=== PATIENT | female | born 1985 | race Caucasian/White ===

== ENCOUNTER 2018-11-21 09:18 | Inpatient (IN) | payer MEDICAID, OTHER ==
[2018-11-21] MEDS: Lactated Ringer's 1,000 ML IV ONE ×2 (09:20→10:10)
[2018-11-21 09:43] VITALS: BMI 28.7
[2018-11-21] MEDS ORDERED: Penicillin G Potassium 5 MU in Sodium Chloride 0.9% 50 ML IVPB ONE (09:43)
[2018-11-21] MEDS ORDERED: Lactated Ringer's 1,000 ML IV SCH (09:45)
--- NOTE | 2018-11-21 10:18 | OBADHP ---
Datetime: 11/21/2018 09:45 Admit Comment, IP Provider: 33yo IUP at 39w0d c/o CTX pain at 8am and SROM shortly after. No VB. +FM PNC: Shirley Paulson [facility] - [facility] documented 5 visits 16 - 30w - nothign afterwards. Pt states that she is GBS+ needs antibiotics/Shir[facility] Paulson is supposed [facility] deliver [facility] [place] [facility] but Shirley Paulson does not deliver. Genecit counselling for Hb C PMH: denies PSH: denies NKA POBGHYNH: denies STD/ x 1 6+lb and spont ab x 1 PSoH: Denies smoking ETOH drugs A: IUP at 39w SROM/early labor GBS+ acc to pt HbC PLAN: admit to L_D Labor, pain managment, IV Abx, delivery and disucssed. Her questions answered. She u nderstands that her OB provider is not delivering. Monitor labor progress Extremities - PN: Normal Abdomen - PN: Normal Back - PN: Normal Lungs - PN: Normal Heart - PN: Normal Thyroid - PN: Normal Neurologic - PN: Normal HEENT - PN: Normal General - PN: Normal Presentation-Admit: Vertex IP Fetus A Comments: Sono ceph FHR - Baseline A Provider: 150 Membranes, Provider: Ruptured Pool Provider: Positive IP Hx Assessment: The History has been Updated Vital Signs Provider: Reviewed IP Chief Complaint: Uterine contractions; Suspected ruptured membranes NICHD Variability Prov Fetus A: Moderate 6-25bpm NICHD Accel Fetus A IP Provider: 15X15 FHR Category Provider Fetus A: Category I NICHD Decel Fetus A IP Provider: None Dilatation, Provider: 4 Effacement, Provider: 90 Station, Provider: -1 Genitourinary Exam: Normal DTRs - PN: Normal IP Adm Impression: Term, intrauterine ; No Active Labor; Ruptured Membranes IP Admit Plan: Admit to unit; Initiate labor protocol
[2018-11-21] MEDS ORDERED: Penicillin G 5 Million Unit Vial IVPB ONE (10:45)
[2018-11-21 10:55] LABS: BASO % 0.3 % (0.0-2.0); EOS # 0.1 K/uL (0.0-0.7); EOS % 0.9 % (0.0-4.0); LYMPH # 1.6 K/uL (1.0-4.3); LYMPH % 15.2 % (20.0-40.0); MEAN CORPUSCULAR HEMOGLOBIN 25.9 pg (27.0-31.0); MEAN CORPUSCULAR HGB CONC 33.7 g/dL (33.0-37.0); MEAN PLATELET VOLUME 9.8 fl (7.2-11.7); MONO # 0.7 K/uL (0.0-0.8); MONO % 6.4 % (0.0-10.0); NEUT # 7.9 K/uL (1.8-7.0); NEUT % 77.2 % (50.0-75.0); NRBC % 0.1 % (0.0-0.0); RBC 4.62 Mil/uL (3.80-5.20); RED CELL DISTRIBUTION WIDTH 19.4 % (11.5-14.5); WHITE BLOOD COUNT 10.3 K/uL (4.8-10.8)
[2018-11-21] MEDS ORDERED: Bupivacaine HCl 0.5% PF (30 ml) Inj ONE (11:06)
[2018-11-21] MEDS ORDERED: Fentanyl/Bupivacaine HCl 250 ML EPI ONE (11:06)
[2018-11-21] MEDS ORDERED: Oxytocin 30 UNIT in NS 500 ml 30 UNITS/500 ML BAG IV ONE ×2 (13:53→13:59)
[2018-11-21] MEDS ORDERED: OXYTOCIN/0.9 % NS 20 UNIT/1,000 ML BAG IV SCH ×2 (14:00→19:21)
[2018-11-21] MEDS ORDERED: Sodium Chloride 0.9% 1,000 ML IV SCH (15:30)
[2018-11-21] MEDS ORDERED: Lidocaine 1% Inj (20ml) ONE (16:27)
[2018-11-21] MEDS ORDERED: Oxycodone/Acetaminophen 5/325 mg Tab PO PRN ×3 (17:09→19:21)
[2018-11-21] MEDS ORDERED: Benzocaine/Menthol SPRAY TOP PRN (17:09)
[2018-11-21] MEDS: Oxycodone/Acetaminophen 5/325 mg Tab PO PRN (21:14)
[2018-11-21] MEDS: Benzocaine/Menthol SPRAY TOP PRN (21:14)
[2018-11-22 06:36] LABS: BASO % 0.3 % (0.0-2.0); EOS # 0.1 K/uL (0.0-0.7); EOS % 0.6 % (0.0-4.0); HEMOGLOBIN 12.1 g/dL (12.0-16.0); LYMPH % 12.7 % (20.0-40.0); MEAN CELL VOLUME 77.3 fl (81.0-99.0); MEAN CORPUSCULAR HGB CONC 33.7 g/dL (33.0-37.0); MEAN PLATELET VOLUME 10.1 fl (7.2-11.7); MONO # 0.8 K/uL (0.0-0.8); MONO % 4.9 % (0.0-10.0); NEUT # 13.1 K/uL (1.8-7.0); NEUT % 81.5 % (50.0-75.0); NRBC % 0.1 % (0.0-0.0); RBC 4.66 Mil/uL (3.80-5.20); RED CELL DISTRIBUTION WIDTH 19.4 % (11.5-14.5)
[2018-11-22 06:55] LABS: WHITE BLOOD COUNT 16.1 K/uL (4.8-10.8)
--- NOTE | 2018-11-22 08:36 | OBDS ---
DELIVERY PERSONNEL Delivery Doctor: Dexter Romero DO Film Library Clerk: Karolina Dobbins RN Anesthesiologist: Dr. Baldwin Sales Process Manager: Dr. Baldwin Resident: Dr. Aponte MATERNAL INFORMATION Delivery Anesthesia: Local; Epidural Medications in Delivery: Pitocin 30 units Estimated Blood Loss (ml): 100 Placenta Cultured: No Maternal Complications: None Provider Comments: Over intact perineum, of live male infant. Two loose nuchal cords noted and reduced. Infant was cryig spontaneously and placed on mother's chest for [id number]. AGPAR 9,9. Peds in attendance. She remained stable EBL 100cc (Annotations: Data stored by N on behalf of user) LABOR SUMMARY EDC: 11/28/2018 00:00 No. Babies in Womb: 1 Attempted: No Labor Anesthesia: None LABOR INFORMATION Reason for Induction: Not Applicable Onset of Labor: 11/21/2018 08:00 Complete Dilatation: 11/21/2018 16:25 Oxytocin: N/A Group B Beta Strep: Positive Antibiotics # of Doses: 2 Antibiotics Time of Last Dose: 1445 Steroids Given: None Reason Steroids Not Administered: Not Applicable MEMBRANES Membranes Rupture Method: Spontaneous Rupture of Membranes: 11/21/2018 08:30 Length of Rupture (hrs): 8.50 Amniotic Fluid Color: Light Meconium Amniotic Fluid Amount: Small Amniotic Fluid Odor: Normal STAGES OF LABOR Stage 1 hrs: 8 Stage 1 min: 25 Stage 2 hrs: 0 Stage 2 min: 35 Stage 3 hrs: 0 Stage 3 min: 5 Total Time in Labor hrs: 9 Total Time in Labor min: 5 VAGINAL DELIVERY Episiotomy: None Laceration Extension: First Degree Laceration Type: Perineal Laceration Repair Note: first dergee perinela lacertatoin repeaired with 2.0 vicryl Rapide suture (f igure of eight x once); Lidcaine infiltrated 2-3cc Initial Vag Sponge Count: 5 Final Vag Sponge Count: 5 Initial Vag Sharps Count: 1 Final Vag Sharps Count: 1 Sponge Count Correct: Yes Sharps Count Correct: Yes Count Comment: 5 lap pads one syringe one suture needle BABY A INFORMATION Infant Delivery Date/Time: 11/21/2018 17:00 Method of Delivery: Vaginal Born in Route : No : N/A Forceps: N/A Vacuum Extraction: N/A Shoulder Dystocia : No SHOULDER DYSTOCIA BABY A Infant Delivery Date/Time: 11/21/2018 17:00 PRESENTATION/POSITION BABY A Presentation: Cephalic Cephalic Presentation: Vertex Breech Presentation: N/A PLACENTA INFORMATION BABY A Placenta Delivery Time : 11/21/2018 17:05 Placenta Method of Delivery: Spontaneous Placenta Status: Delivered SCORES BABY A Heart Rate 1 min: >100 bpm Resp Effort 1 min: Good Cry Reflex Irritability 1 min: Cough or Sneeze or Pulls Away Muscle Tone 1 min: Active Motion Color 1 min: Body [place], Extremities Blue Resuscitation Effort 1 min: Tactile Stimulation SCORE 1 MIN: 9 Heart Rate 5 min: >100 bpm Resp Effort 5 min: Good Cry Reflex Irritability 5 min: Cough or Sneeze or Pulls Away Muscle Tone 5 min: Active Motion Color 5 min: Body [place], Extremities Blue Resuscitation Effort 5 min: Tactile Stimulation SCORE 5 MIN: 9 INFORMATION BABY A Gestational Age at Delivery: 39.0 Gestational Status: Term Infant Outcome : Liveborn Condition : Stable Sex: Male IDENTIFICATION/MEDS BABY A ID Band Number: [id number] ID Band Location: Left Leg; Left Arm WEIGHT/LENGTH BABY A Infant Birthweight (gms): 3595 Infant Weight (lb): 7 Weight (oz): 15 CORD INFORMATION BABY A No. Cord Vessels: 3 Nuchal Cord : Around Neck x2, Loose Cord Blood Taken: N/A Suction: None ASSESSMENT BABY A Complications: Multiple Variable Decels; Meconium Physical Findings at Delivery: Within Normal Limits Respirations: Appears Normal Levi Maker/ALS Called : No Infant Care By: Maura Carrero Transferred To: Remains with Mother
--- NOTE | 2018-11-22 08:38 | OBDS ---
DELIVERY PERSONNEL Delivery Doctor: Dexter Romero DO Tiltrotor Crew Chief: Karolina Dobbins RN Anesthesiologist: Dr. Baldwin Tobacco Educator: Dr. Baldwin Resident: Dr. Aponte MATERNAL INFORMATION Delivery Anesthesia: Local; Epidural Medications in Delivery: Pitocin 30 units Estimated Blood Loss (ml): 100 Placenta Cultured: No Maternal Complications: None Provider Comments: Over intact perineum, of live male infant. Two loose nuchal cords noted and reduced. Infant was cryig spontaneously and placed on mother's chest for [id number]. AGPAR 9,9. Peds in attendance. She remained stable EBL 100cc (Annotations: Data stored by N on behalf of user) LABOR SUMMARY EDC: 11/28/2018 00:00 EDC: 11/28/2018 00:00 No. Babies in Womb: 1 Attempted: No Labor Anesthesia: None LABOR INFORMATION Reason for Induction: Not Applicable Onset of Labor: 11/21/2018 08:00 Complete Dilatation: 11/21/2018 16:25 Oxytocin: N/A Group B Beta Strep: Positive Group B Beta Strep: unknown Antibiotics # of Doses: 2 Antibiotics Time of Last Dose: 1445 Steroids Given: None Reason Steroids Not Administered: Not Applicable MEMBRANES Membranes Rupture Method: Spontaneous Membranes Rupture Method: Spontaneous Rupture of Membranes: 11/21/2018 08:30 Rupture of Membranes: 11/21/2018 08:30 Length of Rupture (hrs): 8.50 Length of Rupture (hrs): 8.50 Amniotic Fluid Color: Light Meconium Amniotic Fluid Color: Light Meconium Amniotic Fluid Amount: Small Amniotic Fluid Amount: Small Amniotic Fluid Odor: Normal Amniotic Fluid Odor: Normal STAGES OF LABOR Stage 1 hrs: 8 Stage 1 min: 25 Stage 2 hrs: 0 Stage 2 min: 35 Stage 3 hrs: 0 Stage 3 min: 5 Total Time in Labor hrs: 9 Total Time in Labor min: 5 VAGINAL DELIVERY Episiotomy: None Laceration Extension: First Degree Laceration Type: Perineal Laceration Repair Note: first dergee perinela lacertatoin repeaired with 2.0 vicryl Rapide suture (f igure of eight x once); Lidcaine infiltrated 2-3cc Initial Vag Sponge Count: 5 Final Vag Sponge Count: 5 Initial Vag Sharps Count: 1 Final Vag Sharps Count: 1 Sponge Count Correct: Yes Sharps Count Correct: Yes Count Comment: 5 lap pads one syringe one suture needle BABY A INFORMATION Infant Delivery Date/Time: 11/21/2018 17:00 Method of Delivery: Vaginal Born in Route : No : N/A Forceps: N/A Vacuum Extraction: N/A Shoulder Dystocia : No SHOULDER DYSTOCIA BABY A Delivery Date/Time: 11/21/2018 17:00 PRESENTATION/POSITION BABY A Presentation: Cephalic Cephalic Presentation: Vertex Breech Presentation: N/A PLACENTA INFORMATION BABY A Placenta Delivery Time : 11/21/2018 17:05 Placenta Method of Delivery: Spontaneous Placenta Status: Delivered SCORES BABY A Heart Rate 1 min: >100 bpm Resp Effort 1 min: Good Cry Reflex Irritability 1 min: Cough or Sneeze or Pulls Away Muscle Tone 1 min: Active Motion Color 1 min: Body [place], Extremities Blue Resuscitation Effort 1 min: Tactile Stimulation SCORE 1 MIN: 9 Heart Rate 5 min: >100 bpm Resp Effort 5 min: Good Cry Reflex Irritability 5 min: Cough or Sneeze or Pulls Away Muscle Tone 5 min: Active Motion Color 5 min: Body [place], Extremities Blue Resuscitation Effort 5 min: Tactile Stimulation SCORE 5 MIN: 9 INFORMATION BABY A Gestational Age at Delivery: 39.0 Gestational Status: Term Outcome : Liveborn Infant Condition : Stable Infant Sex: Male Infant Sex: Male IDENTIFICATION/MEDS BABY A ID Band Number: [id number] ID Band Location: Left Leg; Left Arm WEIGHT/LENGTH BABY A Infant Birthweight (gms): 3595 Infant Weight (lb): 7 Weight (oz): 15 CORD INFORMATION BABY A No. Cord Vessels: 3 Nuchal Cord : Around Neck x2, Loose Cord Blood Taken: N/A Suction: None ASSESSMENT BABY A Complications: Multiple Variable Decels; Meconium Physical Findings at Delivery: Within Normal Limits Respirations: Appears Normal Ship Cleaner/ALS Called : No Infant Care By: Maura Carrero Transferred To: Remains with Mother
[2018-11-22] MEDS: Oxycodone/Acetaminophen 5/325 mg Tab PO PRN (08:41)
--- NOTE | 2018-11-22 09:23 | OBPPN ---
Datetime: 11/22/2018 06:43 PP Pain Prov: Within normal limits PP Nausea Prov: Denies PP Flatus Prov: Yes PP BM Prov: No PP Heart Prov: Normal PP Lungs Prov: Normal PP Abdomen/Uterus Prov: Normal PP Lochia Prov: Normal PP Extremities Prov: Normal PP C/S Incision Prov: Not Applicable PP Progress Prov: Normal PP Comments Phys Exam Prov: Gen: NAD HEENT: NCAT, EOMI Cardio: + S1S2, RRR Lungs: CTA B/L, no wheezes, rales or rhonchi Abd: soft, appropriate tenderness to palpation, + BS heard throughout, UB firm below level of umbi licus Ext: No edema, calves non tender H _ H: aCBC:12.0/35.5, pCBC: 12.36 PP Impression Prov: Normal progression PP Plan Prov: Continue present management PP Progress Note Prov: Pt is a 33 yo PPD 1 s/p on 11/21/18 @ 39weeks. Pt was seen and ex amined at bedside this AM. Patient reports mild pain, controlled well with medication. Also reports d izziness with ambulation and , reports she is drinking a lot of water. Pt is breast and bottle feeding. Pt is tolerating regular PO diet. Lochia like menses. +Flatus, -BM. Denies fevers, ch ills, chest pain, SOB, nausea, vomiting, diarrhea, or dysuria. VS: WNL Gen: NAD HEENT: NCAT, EOMI Cardio: + S1S2, RRR Lungs: CTA B/L, no wheezes, rales or rhonchi Abd: soft, appropriate tenderness to palpation, + BS heard throughout, UB firm below level of umbi licus Ext: No edema, calves non tender H _ H: aCBC:12.0/35.5, pCBC: 12.1/36 Assessment: Pt is a 33 yo PPD 1 s/p on 11/21/18 @ 39weeks, clinically stable Plan: - and fluid intake encouraged, ambulate with caution. -Continue Ibuprofen 600mg 1 tab Q 6h PRN mild pain -Continue Percocet 5/325mg 1-2 tab Q4h PRN severe pain -Pt will call Piercy embryology professor 4-6 weeks post- visit, and emailed Anu for visit at [facility] 2-3 days -Anticipated discharge 11/23/18 Case reviewed and discussed with attending -Marlen Luna PGY1 Patient was seen with the resident I agree with the note IP PP Procedures: None Vital Signs Provider PP: Reviewed; Within Normal Limits
[2018-11-23] MEDS: Benzocaine/Menthol SPRAY TOP PRN (08:24)
--- NOTE | 2018-11-23 10:42 | OBDCSUM ---
Datetime: 11/23/2018 06:11 Discharged to, Provider: Home Follow up at, Provider: Joi Disch Instr Activity: Normal activity Disch Instr Diet: Regular Discharge Instructions, Provider: Routine instructions given Discharge Diagnosis, Provider: Term Delivered Discharge Time: 11/23/2018 06:11 Follow up in weeks, Provider: 4-6 weeks for post appt, 2-3 day visit Disch Referrals: None Contraception discussed, Prov: Yes Disch Activity Restrictions: No lifting; Minimize stair-climbing; No sexual activity; Nothing in vag stefano - [place], tampons, douche Discharge Comment, Provider: Ob Discharge Summary DOA: 11/21/18 EGA: 39 wks Diagnosis: , Delivered term M 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 CBC : 12.1/36.0 Blood type: O+ DISCHARGE DATA D/C DATE: 11/23/18 TIME: 8:00 AM DISCHARGE INSTRUCTIONS: - and ambulation encouraged. -Script written for Ibuprofen 600mg 1 tab Q 6h PRN mild pain #30 No refills -Continue vitamin -If fevers, pain not controlled with medications, increased vaginal bleeding come back to ED -Avoid stairs, heavy lifting, nothing per vagina/intercourse for 4 weeks -Pt has 4-6 weeks post- visit with Joi, and emailed Anu for visit in 2-3 day s Case reviewed and discussed with attending -Marlen Luna PGY1 Contraception after Delivery: IUD
--- NOTE | 2018-11-23 10:42 | OBPPN ---
Datetime: 11/23/2018 06:05 PP Pain Prov: Within normal limits PP Nausea Prov: Denies PP Flatus Prov: Yes PP BM Prov: Yes PP Heart Prov: Normal PP Lungs Prov: Normal PP Abdomen/Uterus Prov: Normal PP Lochia Prov: Normal PP Extremities Prov: Normal PP C/S Incision Prov: Not Applicable PP Progress Prov: Normal PP Comments Phys Exam Prov: Gen: NAD HEENT: NCAT, EOMI Cardio: + S1S2, RRR Lungs: CTA B/L, no wheezes, rales or rhonchi Abd: soft, appropriate tenderness to palpation, + BS heard throughout, UB firm below level of umbi licus Ext: No edema, calves non tender H _ H: aCBC:12.0/35.5, pCBC: 12.1/36 PP Impression Prov: Normal progression PP Plan Prov: Discharge PP Progress Note Prov: Pt is a 33 yo PPD 2 s/p on 11/21/18 @ 39 weeks. Pt was seen and e xamined at bedside this AM. Patient has pain in lower back and abdomen controlled with medication. Duane menendez is ambulating w.o difficulty. Pt is breast and bottle feeding. Pt is tolerating regular PO diet . Lochia like menses. +Flatus, + BM. Denies fevers, chills, dizziness, chest pain, SOB, nausea, vomit ing, diarrhea, constipation or dysuria. VS: WNL Gen: NAD HEENT: NCAT, EOMI Cardio: + S1S2, RRR Lungs: CTA B/L, no wheezes, rales or rhonchi Abd: soft, appropriate tenderness to palpation, + BS heard throughout, UB firm below level of umbi licus Ext: No edema, calves non tender H _ H: aCBC:12.0/35.5, pCBC: 12.1/36.0 Assessment: Pt is a 33 yo PPD 2 s/p on 11/21/18 @ 39weeks, clinically stable Plan: -D/C home today - and ambulation encouraged. -Script written for Ibuprofen 600mg 1 tab Q 6h PRN mild pain #30 No refills -Continue vitamin -If fevers, pain not controlled with medications, increased vaginal bleeding come back to ED -Avoid stairs, heavy lifting, nothing per vagina/intercourse for 4 weeks -Pt has 4-6 week post appt with Joi and emailed reina to schedule 2-3 day new born vi sit Case reviewed and discussed with attending -Marlen Luna PGY1 IP PP Procedures: None Vital Signs Provider PP: Reviewed; Within Normal Limits
[2018-11-23 20:34] VITALS: BP 115/72; PULSE 84; RESP 19; TEMP 98.2; O2SAT 98
== END 2018-11-23 16:10 | disposition home or self-care (01) | DRG 373 ==
LOC: H.EROB2 09:18 → H.L&D 09:43 → H.OB/GYN 20:00
PROVIDERS: ADMIT Obstetrics & Gynecology; ATTEND Obstetrics & Gynecology
PROC: 10E0XZZ Delivery of Products of Conception, External Approach (ICD-10-PCS; principal; 2018-11-21)
PROC: 0HQ9XZZ Repair Perineum Skin, External Approach (ICD-10-PCS; 2018-11-21)
PROC: 4A1HXCZ Monitoring of Products of Conception, Cardiac Rate, External Approach (ICD-10-PCS; 2018-11-21)
DX: O76 Abnormality in fetal heart rate and rhythm complicating labor and delivery (principal); O69.81X0 Labor and delivery complicated by cord around neck, without compression, not applicable or unspecified; O77.0 Labor and delivery complicated by meconium in amniotic fluid; O99.824 Streptococcus B carrier state complicating childbirth; O70.0 First degree perineal laceration during delivery; Z37.0 Single live birth; Z3A.39 39 weeks gestation of pregnancy